=== PATIENT | male | born 1960 | race Caucasian/White ===

== ENCOUNTER 2020-12-30 05:33 | Outpatient (CLI) | payer BC ==
[~2020-12-30] VITALS: Ht 172.7 cm; Wt 77.0 kg
[~2020-12-30 05:33] MED LIST: ASP81TEC PO; FAMO40TA6 PO; PRD20T PO; SULF1TAB38 PO
[2020-12-30] MEDS ORDERED: LISI10TA25 PO (15:25)
== END 2020-12-30 15:58 | disposition home or self-care (01) ==
LOC: PREOP 05:33 → EDSTATUS 10:00 → PREOP 15:58
PROVIDERS: ATTEND Surgery
DX: Z01.818 Encounter for other preprocedural examination (principal)

== ENCOUNTER 2022-12-18 13:21 | Inpatient (IN) | payer BC ==
[~2022-12-18] VITALS: Ht 170 cm; Wt 87.4 kg
[~2022-12-18 13:21] MED LIST changes: +LISI10TA25 PO
[2022-12-18] MEDS ORDERED: RT-ALBUTEROL/IPRATROPIUM 3 ML (DUONEB) VIAL ONE (13:27)
[2022-12-18] MEDS ORDERED: RT-ALBUTEROL/IPRATROPIUM 3 ML (DUONEB) VIAL INH ONE ×2 (13:30→14:30)
[2022-12-18] MEDS ORDERED: methylPREDNISolone 125 MG (Solu-MEDROL) VIAL IVP ONE (13:30)
[2022-12-18] MEDS ORDERED: DOXYCYCLINE 100 MG (VIBRAMYCIN) TABLET PO ONE (13:30)
[2022-12-18] MEDS ORDERED: LACTATED RINGERS 1,000 ML IV STA (13:32)
--- NOTE | 2022-12-18 13:35 | ED Respiratory ---
General Stated Complaint: SOB; WHEEZING Source: patient Exam Limitations: no limitations History of Present Illness Date Seen by Provider: Dec 18, 2022 Time Seen by Provider: 13:23 Initial Comments 62-year-old male with past medical history of hypertension coming in because he is feeling short of breath. Started noticing some wheezing yesterday, worsening today. He has never felt this way before, and denies any history of COPD. He used to smoke, but does not smoke tobacco anymore, does use marijuana. Denies any chest pain, fever, lower extremity swelling or pain, prior history of DVT or PE, has never had surgery, no hormone use, no nausea, vomiting, diarrhea, weakness, numbness, or any other concerns Allergies and Home Medications Allergies Coded Allergies: No Known Drug Allergies (Unverified , 03/14/11) Patient Home Medication List Home Medication List Reviewed: Yes Aspirin (Aspirin Ec 81 Mg) 81 Mg Tabec, 81 MG PO DAILY, (Reported) Entered as Reported by: LETICIA KILGORE on 03/14/11 2216 Lisinopril (Lisinopril) 10 Mg Tablet, 10 MG PO DAILY, (Reported) Entered as Reported by: BRENDA PULIDO on 12/30/20 1525 Review of Systems Review of Systems Constitutional: No fever EENTM: no symptoms reported Respiratory: see HPI Cardiovascular: no symptoms reported Gastrointestinal: no symptoms reported Genitourinary: no symptoms reported Musculoskeletal: no symptoms reported Skin: no symptoms reported Psychiatric/Neurological: No Symptoms Reported Hematologic/Lymphatic: No Symptoms Reported Immunological/Allergic: no symptoms reported Past Ztaxllb-Vawfvl-Jwydhj Hx Patient Social History Use of E-Cig and/or Vaping dev: Yes E-Cig or Vaping type used: Marijuana Seasonal Allergies Seasonal Allergies: No Past Medical History Surgeries: Yes Tonsillectomy Respiratory: No Currently Using CPAP: No Currently Using BIPAP: No Cardiac: Yes Hypertension Neurological: No Genitourinary: No Gastrointestinal: No Musculoskeletal: No Endocrine: No HEENT: No Cancer: No Psychosocial: No Integumentary: No Blood Disorders: No Physical Exam Vital Signs - First Documented 12/18/22 12/18/22 13:30 13:35 Temp 36.9 Pulse 129 Resp 40 B/P (MAP) 185/91 (122) Pulse Ox 95 O2 Delivery Nasal Cannula O2 Flow Rate 2.00 Capillary Refill : Height: '" Weight: lbs. oz. kg; 25.81 BMI Method: General Appearance: WD/WN, severe distress Eyes: Bilateral Eye Normal Inspection HEENT: PERRL/EOMI, normal ENT inspection, pharynx normal Neck: non-tender, full range of motion, supple, normal inspection Respiratory: chest non-tender, respiratory distress, wheezing Cardiovascular: no edema, no murmur, tachycardia Gastrointestinal: normal bowel sounds, non tender, soft; No distended, No guarding Extremities: normal range of motion, non-tender, normal inspection, no pedal edema, no calf tenderness, normal capillary refill Neurologic/Psychiatric: no motor/sensory deficits, alert, normal mood/affect Skin: normal color, warm/dry Focused Exam Lactate Level 12/18/22 13:35: Lactic Acid Level 5.76*H Lactic Acid Level Laboratory Tests Test 12/18/22 13:35 Lactic Acid Level 5.76 MMOL/L (0.50-2.00) *H Progress/Results/Core Measures Suspected Sepsis SIRS Temperature: Pulse: Respiratory Rate: Laboratory Tests 12/18/22 13:35: White Blood Count 16.0H Blood Pressure / Mean: 12/18/22 13:35: Lactic Acid Level 5.76*H Laboratory Tests 12/18/22 13:35: Creatinine 1.31H, INR Comment 1.0, Platelet Count 256, Total Bilirubin 1.3H Results/Orders Lab Results Laboratory Tests Test 12/18/22 13:35 Range/Units White Blood Count 16.0 H 4.3-11.0 10^3/uL Red Blood Count 6.22 H 4.30-5.52 10^6/uL Hemoglobin 17.6 13.3-17.7 g/dL Hematocrit 55 H 40-54 % Mean Corpuscular Volume 88 80-99 fL Mean Corpuscular Hemoglobin 28 25-34 pg Mean Corpuscular Hemoglobin Concent 32 32-36 g/dL Red Cell Distribution Width 14.1 10.0-14.5 % Platelet Count 256 130-400 10^3/uL Mean Platelet Volume 9.9 9.0-12.2 fL Immature Granulocyte % (Auto) 1 % Neutrophils (%) (Auto) 79 H 42-75 % Lymphocytes (%) (Auto) 11 L 12-44 % Monocytes (%) (Auto) 7 0-12 % Eosinophils (%) (Auto) 2 0-10 % Basophils (%) (Auto) 0 0-10 % Neutrophils # (Auto) 12.6 H 1.8-7.8 10^3/uL Lymphocytes # (Auto) 1.8 1.0-4.0 10^3/uL Monocytes # (Auto) 1.2 H 0.0-1.0 10^3/uL Eosinophils # (Auto) 0.3 0.0-0.3 10^3/uL Basophils # (Auto) 0.0 0.0-0.1 10^3/uL Immature Granulocyte # (Auto) 0.1 0.0-0.1 10^3/uL Neutrophils % (Manual) 76 % Lymphocytes % (Manual) 10 % Monocytes % (Manual) 7 % Eosinophils % (Manual) 1 % Myelocytes % 1 % Band Neutrophils 5 % Platelet Estimate NORMAL Blood Morphology Comment NORMAL Prothrombin Time 13.8 12.2-14.7 SEC INR Comment 1.0 0.8-1.4 Activated Partial Thromboplast Time 28 24-35 SEC D-Dimer 2.98 H 0.00-0.49 UG/ML Venous Blood pH 7.20 L 7.31-7.41 Venous Blood Partial Pressure CO2 59 H 40-52 MMHG Venous Blood HCO3 23 22-28 MMOL/L Sodium Level 139 135-145 MMOL/L Potassium Level 3.8 3.6-5.0 MMOL/L Chloride Level 99 98-107 MMOL/L Carbon Dioxide Level 21 21-32 MMOL/L Anion Gap 19 H 5-14 MMOL/L Blood Urea Nitrogen 15 7-18 MG/DL Creatinine 1.31 H 0.60-1.30 MG/DL Estimat Glomerular Filtration Rate 61 BUN/Creatinine Ratio 11 Glucose Level 164 H 70-105 MG/DL Lactic Acid Level 5.76 *H 0.50-2.00 MMOL/L Calcium Level 9.2 8.5-10.1 MG/DL Corrected Calcium 8.5-10.1 MG/DL Total Bilirubin 1.3 H 0.1-1.0 MG/DL Aspartate Amino Transf (AST/SGOT) 25 5-34 U/L Alanine Aminotransferase (ALT/SGPT) 36 0-55 U/L Alkaline Phosphatase 66 40-136 U/L Troponin I < 0.30 <0.30 NG/ML Pro-B-Type Natriuretic Peptide 469.2 H <125.0 PG/ML Total Protein 8.3 H 6.4-8.2 GM/DL Albumin 4.6 H 3.2-4.5 GM/DL My Orders Orders - SHERWIN CADET MD Albuterol/Ipra Inhalation Soln (Duoneb I (12/18/22 13:30) Albuterol/Ipra Inhalation Soln (Duoneb I (12/18/22 13:27) Monitor-Rhythm Ecg Trace Only (12/18/22 13:30) Pulse Oximetry Order (12/18/22 13:30) Cbc And Manual Diff (12/18/22 13:30) Ekg Tracing (12/18/22 13:30) Doxycycline Hyclate Tablet (Vibramycin T (12/18/22 13:30) Comprehensive Metabolic Panel (12/18/22 13:30) Protime With Inr (12/18/22 13:30) Partial Thromboplastin Time (12/18/22 13:30) Probnp Fs (12/18/22 13:30) Troponin I Fs (12/18/22 13:30) Chest 1 View Ap/Pa Only (12/18/22 13:30) Methylprednisolone Sod Succ (Solu-Medrol (12/18/22 13:30) Lactated Ringers (Lr 1000 Ml Iv Solution (12/18/22 13:32) Venous Blood Gas (12/18/22 13:35) Fibrin Degradation Products (12/18/22 13:45) Ceftriaxone 1 Gm Pre-Mix (Rocephin 1 Gm (12/18/22 14:00) Lactic Acid Analyzer (12/18/22 14:01) Blood Culture (12/18/22 14:24) Albuterol/Ipra Inhalation Soln (Duoneb I (12/18/22 14:30) Ct Angio Chest W (12/18/22 14:43) Iohexol Injection (Omnipaque 350 Mg/Ml 1 (12/18/22 14:45) Received Contrast (Hold Metformin- Contr (12/18/22 14:45) Ns (Ivpb) (Sodium Chloride 0.9% Ivpb Bag (12/18/22 14:45) Medications Given in ED Current Medications Medications Dose Ordered Sig/Katie Route Start Time Stop Time Status Last Admin Dose Admin Albuterol/ Ipratropium 3 ml ONCE ONCE INH 12/18/22 13:30 12/18/22 13:31 DC 12/18/22 13:47 3 ML Albuterol/ Ipratropium 3 ml ONCE ONCE INH 12/18/22 14:30 12/18/22 14:31 DC 12/18/22 13:28 3 ML Ceftriaxone Sodium/Dextrose 50 ml @ 100 mls/hr ONCE ONCE IV 12/18/22 14:00 12/18/22 14:29 DC 12/18/22 14:14 100 MLS/HR Doxycycline Hyclate 100 mg ONCE ONCE PO 12/18/22 13:30 12/18/22 13:33 DC 12/18/22 13:47 100 MG Iohexol 100 ml ONCE ONCE IV 12/18/22 14:45 12/18/22 14:49 DC 12/18/22 15:19 80 ML Methylprednisolone Sodium Succinate 125 mg ONCE ONCE IVP 12/18/22 13:30 12/18/22 13:33 DC 12/18/22 13:47 125 MG Sodium Chloride 100 ml ONCE ONCE IV 12/18/22 14:45 12/18/22 14:49 DC 12/18/22 15:19 100 ML Vital Signs/I&O 12/18/22 12/18/22 12/18/22 13:30 13:35 15:32 Temp 36.9 Pulse 129 113 Resp 40 20 B/P (MAP) 185/91 (122) 113/66 Pulse Ox 95 96 99 O2 Delivery Nasal Cannula Nasal Cannula NIV Bilevel O2 Flow Rate 2.00 6.00 30.00 Capillary Refill : Progress Note : Progress Note 62yoM with above history coming in due to increasing SOB. The patient was tachypneic on presentation, in respiratory distress with wheezing. Immediately given a DuoNeb with very mild improvement. Patient speaking in essentially one- word sentences, but barely able to get that out, transitioned over to BiPAP for work of breathing. EKG with no acute ischemic changes on my interpretation, just showing sinus tachycardia. Chest x-ray ordered and interpreted by me showing bilateral pneumonia. An IV was placed and basic labs were obtained incl uding cardiac biomarkers and lactic acid. He was given ceftriaxone as well as doxycycline for his pneumonia. Also given a bolus of IV fluids. White blood cell count elevated, lactic acid elevated, D-dimer elevated, troponin negative. CTA then ordered to assess for blood clot versus infection. I contacted Dr. Pavon who admit the patient to the ICU for further evaluation and management. I then contacted the ICU physician for signout as well. ECG Initial ECG Impression Date: Dec 18, 2022 Initial ECG Impression Time: 13:49 Initial ECG Rate: 124 Initial ECG Rhythm: S.Tach Comment Narrow QRS, normal axis, ST depressions in the lateral leads, no STEMI, no significant T wave abnormality Diagnostic Imaging Diagonstic Imaging: Xray (chest), CT (CTA chest) Comments [facility], [place] NAME: SHERI NUNES [facility] REC#: [id number] PT STATUS: REG ER : 1960 PHYSICIAN: SHERWIN CADET MD ADMIT DATE: 12/18/22/ER FS Draft Date of Exam:12/18/22 CHEST 1 VIEW AP/PA ONLY HISTORY: Respiratory distress TECHNIQUE: Frontal view of the chest COMPARISON: None FINDINGS: There are patchy airspace opacities in the left midlung in the right lung base. There is no pleural effusion or pneumothorax. The cardiac silhouette is normal in size. IMPRESSION: 1. Airspace opacities bilaterally, most pronounced in the right lung base, concerning for infection. Dictated on workstation # [id number] Dict: 12/18/22 1350 Trans: 12/18/22 1352 [facility] [id number] Interpreted by: LISA HAYNES MD Electronically signed by: [facility], [place] NAME: SHERI NUNES [facility] REC#: [id number] PT STATUS: REG ER : 1960 PHYSICIAN: SHERWIN CADET MD ADMIT DATE: 12/18/22/ER FS Signed Date of Exam:12/18/22 CT ANGIO CHEST W PROCEDURE: CT angiography of the chest with contrast. TECHNIQUE: Multiple contiguous axial images were obtained through the chest after uneventful bolus administration of intravenous contrast. 3D reconstructed CTA MIP acquisitions were also performed. Auto Exposure Controls were utilized during the CT exam to meet ALARA standards for radiation dose reduction. INDICATION: Wheezing and elevated D-dimer with shortness of breath. COMPARISON: No prior studies are available for comparison. FINDINGS: There is suboptimal opacification of the pulmonary arterial system. No definite central emboli are detected, however evaluation of the segmental and subsegmental branches is limited. The thoracic aorta is normal in caliber. There is no dissection. There is no pericardial fluid. There is trace pleural fluid in the lung bases bilaterally. No axillary lymphadenopathy is seen. There are mildly prominent lymph nodes throughout the mediastinum. No hilar lymphadenopathy is detected. There are patchy airspace infiltrates in bilateral upper lobes as well as areas of parenchymal consolidation in bilateral upper lobes as well as the right lower lobe and to a lesser degree in the lingula. Upper abdomen is grossly unremarkable. IMPRESSION: 1. Suboptimal opacification of the pulmonary arterial system. 2. No definite central emboli are detected. 3. Trace bilateral effusions with bilateral pulmonary infiltrates, suggestive of pneumonia. There are some prominent lymph nodes in the mediastinum which may be reactive. Dictated by: Dictated on workstation # [id number] Dict: 12/18/22 1530 Trans: 12/18/22 1550 [id number] Interpreted by: COLLEEN COTTRELL MD Electronically signed by: COLLEEN COTTRELL MD 12/18/22 1550 Departure Impression Primary Impression: Pneumonia Qualified Codes: J18.9 - Pneumonia, unspecified organism Additional Impressions: Respiratory failure Qualified Codes: J96.02 - Acute respiratory failure with hypercapnia Severe sepsis Disposition: 30 STILL A PATIENT Condition: Stable Admissions Decision to Admit Reason: Admit from ER (General) Decision to Admit/Date: Dec 18, 2022 Time/Decision to Admit Time: 14:40 Transfer Transfer Facility: [facility] Method of Transfer: EMS Departure-Patient Inst. Referrals: NO,LOCAL PHYSICIAN (PCP/Family) Primary Care Physician SHERWIN CADET MD Dec 18, 2022 13:35
[2022-12-18 13:45] LABS: BASOPHILS % (AUTO) 0 % (0-10); EOSINOPHILS # (AUTO) 0.3 10^3/uL (0.0-0.3); EOSINOPHILS % (AUTO) 2 % (0-10); HEMATOCRIT 55 % (40-54); HEMOGLOBIN 17.6 g/dL (13.3-17.7); LYMPHOCYTES # (AUTO) 1.8 10^3/uL (1.0-4.0); LYMPHOCYTES % (AUTO) 11 % (12-44); MEAN CORPUSCULAR HEMOGLOBIN 28 pg (25-34); MEAN CORPUSCULAR HGB CONC 32 g/dL (32-36); MEAN CORPUSCULAR VOLUME 88 fL (80-99); MEAN PLATELET VOLUME 9.9 fL (9.0-12.2); MONOCYTES # (AUTO) 1.2 10^3/uL (0.0-1.0); MONOCYTES % (AUTO) 7 % (0-12); NEUTROPHILS # (AUTO) 12.6 10^3/uL (1.8-7.8); NEUTROPHILS % (AUTO) 79 % (42-75); PLATELET COUNT 256 10^3/uL (130-400)
--- NOTE | 2022-12-18 13:52 | Diagnostic Imaging Report ---
HISTORY: Respiratory distress TECHNIQUE: Frontal view of the chest COMPARISON: None FINDINGS: There are patchy airspace opacities in the left midlung in the right lung base. There is no pleural effusion or pneumothorax. The cardiac silhouette is normal in size. IMPRESSION: 1. Airspace opacities bilaterally, most pronounced in the right lung base, concerning for infection. Dictated by: Dictated on workstation # [id number]
[2022-12-18] MEDS ORDERED: cefTRIAXone 1 GM PRE-MIX 50 ML IV ONE (14:00)
[2022-12-18 14:12] LABS: BAND NEUTROPHILS 5 %; EOSINOPHILS % (MANUAL) 1 %; LYMPHOCYTES % (MANUAL) 10 %; MONOCYTES % (MANUAL) 7 %; MYELOCYTES % 1 %; NEUTROPHILS % (MANUAL) 76 %
[2022-12-18 14:13] LABS: PLATELET ESTIMATE NORMAL; RBC MORPH NORMAL
[2022-12-18 14:20] LABS: CHLORIDE 99 MMOL/L (98-107); POTASSIUM 3.8 MMOL/L (3.6-5.0); SODIUM 139 MMOL/L (135-145)
[2022-12-18 14:21] LABS: ALANINE AMINOTRANSFERASE 36 U/L (0-55); ALBUMIN 4.6 GM/DL (3.2-4.5); ALKALINE PHOSPHATASE 66 U/L (40-136); BILIRUBIN,TOTAL 1.3 MG/DL (0.1-1.0); BUN/CREATININE RATIO 11; CALCIUM 9.2 MG/DL (8.5-10.1); CARBON DIOXIDE 21 MMOL/L (21-32); CREATININE SERUM 1.31 MG/DL (0.60-1.30); GFR ESTIMATED 61; GLUCOSE 164 MG/DL (70-105); TOTAL PROTEIN 8.3 GM/DL (6.4-8.2)
[2022-12-18 14:39] LABS: PROTHROMBIN TIME PATIENT 13.8 SEC (12.2-14.7)
[2022-12-18] MEDS ORDERED: NS 100 ML (IVPB) BAG IV ONE (14:45)
[2022-12-18] MEDS ORDERED: IOHEXOL 350 MG/ML 100 ML (OMNIPAQUE 350) VIAL IV ONE (14:45)
[2022-12-18] MEDS ORDERED: HOLD METFORMIN - RECEIVED CONTRAST 20 ML VIAL IV SCH (14:45)
--- NOTE | 2022-12-18 15:41 | Diagnostic Imaging Report ---
PROCEDURE: CT angiography of the chest with contrast. TECHNIQUE: Multiple contiguous axial images were obtained through the chest after uneventful bolus administration of intravenous contrast. 3D reconstructed CTA MIP acquisitions were also performed. Auto Exposure Controls were utilized during the CT exam to meet ALARA standards for radiation dose reduction. INDICATION: Wheezing and elevated D-dimer with shortness of breath. COMPARISON: No prior studies are available for comparison. FINDINGS: There is suboptimal opacification of the pulmonary arterial system. No definite central emboli are detected, however evaluation of the segmental and subsegmental branches is limited. The thoracic aorta is normal in caliber. There is no dissection. There is no pericardial fluid. There is trace pleural fluid in the lung bases bilaterally. No axillary lymphadenopathy is seen. There are mildly prominent lymph nodes throughout the mediastinum. No hilar lymphadenopathy is detected. There are patchy airspace infiltrates in bilateral upper lobes as well as areas of parenchymal consolidation in bilateral upper lobes as well as the right lower lobe and to a lesser degree in the lingula. Upper abdomen is grossly unremarkable. IMPRESSION: 1. Suboptimal opacification of the pulmonary arterial system. 2. No definite central emboli are detected. 3. Trace bilateral effusions with bilateral pulmonary infiltrates, suggestive of pneumonia. There are some prominent lymph nodes in the mediastinum which may be reactive. Dictated by: Dictated on workstation # [id number]
[2022-12-18 16:48] VITALS: BP 134/82
[2022-12-18 16:55] VITALS: BP 113/66
[2022-12-18] MEDS ORDERED: NOREPINEPHRINE 8 MG/250 ML 250 ML IV SCH (17:00)
[2022-12-18] MEDS ORDERED: ONDANSETRON 4 MG/2 ML (SDV) Z0FRAN IV PRN (17:00)
[2022-12-18] MEDS ORDERED: EPINEPHrine 1 MG INJECTION 4 MG in NS (IVPB) 248 ML IV SCH (17:00)
[2022-12-18] MEDS ORDERED: ACETAMINOPHEN 500 MG TAB (TYLENOL) PO PRN (17:00)
[2022-12-18 17:03] VITALS: BP 113/66
[2022-12-18] MEDS ORDERED: RT-ALBUTEROL SULF 2.5 MG/3 ML PRE-MIX VIAL INH PRN (17:15)
--- NOTE | 2022-12-18 17:25 | Tele-ICU Consult ---
History of Present Illness History of Present Illness Date Seen by Provider: Dec 18, 2022 Time Seen by Provider: 17:17 History of Present Illness eICU critical care consult 62 yo M came to ED with cc of SOB, CXR showed bilateral opacities, carrie in RLL base, CTA was suboptimal but did now show obvious pul emb.d dimer 2.98 Pt refused COVID or flu according to ED MD, Started on IV Rocephin and doxycycline Initially pt cyanotic and in resp distress with SpO2 in 80's, placed on BiPAP with good improvement 09/08, FIO2 30% WBC 16k, LA 5.76, VBG 7.20/59, proBNP up at 469m Cr 1.3, LFT's ok Has not received either Covid or flu vaccine but now agrees to have nose swabbed. PMH HTN on no meds Allergies and Home Medications Allergies Coded Allergies: No Known Drug Allergies (Unverified , 03/14/11) Home Medications Aspirin 81 Mg Tabec, 81 MG PO DAILY, (Reported) Lisinopril 10 Mg Tablet, 10 MG PO DAILY, (Reported) Past Medical/Social/Family Hx Patient Social History Tobacco Use?: No Use of E-Cig and/or Vaping dev: Yes E-Cig or Vaping type used: Marijuana Substance use?: Yes Substance type: Marijuana Alcohol Use?: No Pt stated abuse/neglect: No Immunizations Up To Date Influenza Vaccine Up-to-Date: No; Not Current First/Initial COVID19 Vaccinat: NO VACC Current Status Advance Directives: No Communicates: Verbally Primary Language: Cypriot Preferred Spoken Language: Cypriot Is interpretation needed?: No Sensory deficits: Vision impairment Implanted or Applied Medical D: None Review of Systems Constitutional: see HPI EENTM: see HPI Respiratory: see HPI Cardiovascular: see HPI Gastrointestinal: see HPI Genitourinary: see HPI Musculoskeletal: see HPI Skin: see HPI Psychiatric/Neurological: See HPI Focused Exam Lactate Level 12/18/22 13:35: Lactic Acid Level 5.76*H 12/18/22 17:03: Height, Weight, BMI Height: '" Weight: lbs. oz. kg; 25.00 BMI Method: Lactic Acid Level Laboratory Tests Test 12/18/22 13:35 12/18/22 17:03 Lactic Acid Level 5.76 MMOL/L (0.50-2.00) *H Exam Exam Patient acknowledged, consented, and participated in this virtual visit which was conducted using real time audio/video Vital Signs Date Time Temp Pulse Resp B/P (MAP) Pulse Ox O2 Delivery O2 Flow Rate FiO2 12/18/22 16:55 36.9 110 96 2 12/18/22 16:55 Nasal Cannula 3.00 12/18/22 15:32 113 20 113/66 99 NIV Bilevel 30.00 12/18/22 13:35 36.9 129 40 185/91 (122) 96 Nasal Cannula 6.00 12/18/22 13:30 95 Nasal Cannula 2.00 Height & Weight Height: '" Weight: lbs. oz. kg; 25.00 BMI Method: General Appearance: No Apparent Distress Respiratory: Lungs Clear Cardiovascular: Regular Rate, Rhythm, Tachycardia Capillary Refill: Less Than 3 Seconds Gastrointestinal: normal bowel sounds, non tender, soft Extremity: No Pedal Edema (`), Pedal Edema Results Lab Laboratory Tests 12/18/22 13:35 Assessment/Plan Assessment/Plan Bilateral PNA R > L, Would keep in resp isolaiton until Covid and flu serology back, continue on present abx Hb 17.6 may reflect dehydration but also may be due to a reactive polycythemia from exertional hypoxia or NHAN Critical Care: Critically Ill Patient Time spent with patient (mins): 30 GEOVANNA MA MD Dec 18, 2022 17:25
[2022-12-18] MEDS: VASOPRESSIN INJECTION 20 UNIT in NS (IVPB) 100 ML IV SCH (18:14)
[2022-12-18] MEDS: RT-ALBUTEROL/IPRATROPIUM 3 ML (DUONEB) VIAL INH SCH (21:06)
[2022-12-18] MEDS: DOXYCYCLINE INJECTION 100 MG in NS (IVPB) 100 ML IV SCH (21:15)
[2022-12-19] MEDS: VASOPRESSIN INJECTION 20 UNIT in NS (IVPB) 100 ML IV SCH (04:08)
[2022-12-19 07:19] LABS: BASOPHILS % (AUTO) 0 % (0-10); EOSINOPHILS # (AUTO) 0.1 10^3/uL (0.0-0.3); EOSINOPHILS % (AUTO) 0 % (0-10); HEMATOCRIT 47 % (40-54); HEMOGLOBIN 15.6 g/dL (13.3-17.7); LYMPHOCYTES # (AUTO) 0.9 10^3/uL (1.0-4.0); LYMPHOCYTES % (AUTO) 5 % (12-44); MEAN CORPUSCULAR HEMOGLOBIN 29 pg (25-34); MEAN CORPUSCULAR HGB CONC 33 g/dL (32-36); MEAN CORPUSCULAR VOLUME 87 fL (80-99); MONOCYTES # (AUTO) 0.7 10^3/uL (0.0-1.0); MONOCYTES % (AUTO) 4 % (0-12); NEUTROPHILS # (AUTO) 16.7 10^3/uL (1.8-7.8); NEUTROPHILS % (AUTO) 90 % (42-75); PLATELET COUNT 219 10^3/uL (130-400); WHITE BLOOD COUNT 18.5 10^3/uL (4.3-11.0)
[2022-12-19 07:29] LABS: POTASSIUM 3.8 MMOL/L (3.6-5.0)
[2022-12-19 07:30] LABS: CALCIUM 9.2 MG/DL (8.5-10.1)
[2022-12-19 07:34] LABS: CREATININE SERUM 1.09 MG/DL (0.60-1.30); PHOSPHORUS 1.7 MG/DL (2.3-4.7)
[2022-12-19 07:37] LABS: MAGNESIUM 2.1 MG/DL (1.6-2.4)
[2022-12-19 08:03] LABS: BAND NEUTROPHILS 2 %; LYMPHOCYTES % (MANUAL) 3 %; MONOCYTES % (MANUAL) 6 %; NEUTROPHILS % (MANUAL) 89 %; PLATELET ESTIMATE ADEQUATE; RBC MORPH NORMAL
[2022-12-19 08:04] LABS: TOXIC GRANULATION/VACUOLAZATIO 1+
[2022-12-19] MEDS: DOXYCYCLINE INJECTION 100 MG in NS (IVPB) 100 ML IV SCH ×2 (08:14→19:37)
--- NOTE | 2022-12-19 08:16 | Tele-ICU Progress Note ---
Progress Note video rounds completed 62 y/o male with COPD and bilateral PNA Influenza and Covid testing negative. On IV ceftriaxone Overall doing well PE" O2 sat 98% P: 71 NSR BP: 134/88 IMP: bilateral PNA on IV antibiotics Have added lovenox for DVT px PLAN: CPM Time spent with patient and reviewing labs, new orders: 15 minutes Focused Exam Lactate Level 12/18/22 17:03: Lactic Acid Level 2.74*H 12/18/22 19:05: Lactic Acid Level 2.11*H 12/18/22 21:05: Lactic Acid Level 1.63 Height, Weight, BMI Height: '" Weight: lbs. oz. kg; 25.88 BMI Method: Labs Laboratory Tests 12/18/22 13:35 12/19/22 07:10 Results Results/Procedures Lab Laboratory Tests 12/18/22 13:35 12/19/22 07:10 Results Results/Procedures Labs Laboratory Tests 12/18/22 13:35 12/19/22 07:10 Patient resulted labs reviewed. Results Labs Labs Laboratory Tests 12/18/22 13:35: White Blood Count 16.0H, Red Blood Count 6.22H, Hemoglobin 17.6, Hematocrit 55H, Mean Corpuscular Volume 88, Mean Corpuscular Hemoglobin 28, Mean Corpuscular Hemoglobin Concent 32, Red Cell Distribution Width 14.1, Platelet Count 256, Mean Platelet Volume 9.9, Immature Granulocyte % (Auto) 1, Neutrophils (%) (Auto) 79H, Lymphocytes (%) (Auto) 11L, Monocytes (%) (Auto) 7, Eosinophils (%) (Auto) 2, Basophils (%) (Auto) 0, Neutrophils # (Auto) 12.6H, Lymphocytes # (Auto) 1.8, Monocytes # (Auto) 1.2H, Eosinophils # (Auto) 0.3, Basophils # (Auto) 0.0, Immature Granulocyte # (Auto) 0.1, Neutrophils % (Manual) 76, Lymphocytes % (Manual) 10, Monocytes % (Manual) 7, Eosinophils % (Manual) 1, Myelocytes % 1, Band Neutrophils 5, Platelet Estimate NORMAL, Blood Morphology Comment NORMAL, Prothrombin Time 13.8, INR Comment 1.0, Activated Partial Thromboplast Time 28, D-Dimer 2.98H, Venous Blood pH 7.20L, Venous Blood Partial Pressure CO2 59H, Venous Blood HCO3 23, Sodium Level 139, Potassium Level 3.8, Chloride Level 99, Carbon Dioxide Level 21, Anion Gap 19H, Blood Urea Nitrogen 15, Creatinine 1.31H, Estimat Glomerular Filtration Rate 61, BUN/Creatinine Ratio 11, Glucose Level 164H, Lactic Acid Level 5.76*H, Calcium Level 9.2, Corrected Calcium , Total Bilirubin 1.3H, Aspartate Amino Transf (AST/SGOT) 25, Alanine Aminotransferase (ALT/SGPT) 36, Alkaline Phosphatase 66, Troponin I < 0.30, Pro-B-Type Natriuretic Peptide 469.2H, Total Protein 8.3H, Albumin 4.6H 12/18/22 17:03: Lactic Acid Level 2.74*H 12/18/22 18:04: Influenza Type A (RT-PCR) Not Detected, Influenza Type B (RT-PCR) Not Detected, SARS-CoV-2 RNA (RT-PCR) Not Detected 12/18/22 19:05: Lactic Acid Level 2.11*H 12/18/22 21:05: Lactic Acid Level 1.63 12/19/22 07:10: White Blood Count 18.5H, Red Blood Count 5.47, Hemoglobin 15.6, Hematocrit 47, Mean Corpuscular Volume 87, Mean Corpuscular Hemoglobin 29, Mean Corpuscular Hemoglobin Concent 33, Red Cell Distribution Width 13.7, Platelet Count 219, Mean Platelet Volume 10.0, Immature Granulocyte % (Auto) 1, Neutrophils (%) (Auto) 90H, Lymphocytes (%) (Auto) 5L, Monocytes (%) (Auto) 4, Eosinophils (%) (Auto) 0, Basophils (%) (Auto) 0, Neutrophils # (Auto) 16.7H, Lymphocytes # (Auto) 0.9L, Monocytes # (Auto) 0.7, Eosinophils # (Auto) 0.1, Basophils # (Auto) 0.0, Immature Granulocyte # (Auto) 0.1, Neutrophils % (Manual) 89, Lymphocytes % (Manual) 3, Monocytes % (Manual) 6, Band Neutrophils 2, Toxic Granulation 1+, Platelet Estimate ADEQUATE, Blood Morphology Comment NORMAL, Sodium Level 141, Potassium Level 3.8, Chloride Level 110#H, Carbon Dioxide Level 19L, Anion Gap 12, Blood Urea Nitrogen 17, Creatinine 1.09, Estimat Glomerular Filtration Rate 76, BUN/Creatinine Ratio 16, Glucose Level 154H, Calcium Level 9.2, Phosphorus Level 1.7L, Magnesium Level 2.1 GEOVANNA RAMSEY MD Dec 19, 2022 08:16
--- NOTE | 2022-12-19 09:12 | History & Physical-Hospitalist ---
History of Present Illness HPI/Chief Complaint 62-year-old male with past medical history of hypertension coming in because he is feeling short of breath. Started noticing some wheezing yesterday, worsening today. He has never felt this way before, and denies any history of COPD. He used to smoke, but does not smoke tobacco anymore, does use marijuana. Denies a ny chest pain, fever, lower extremity swelling or pain, prior history of DVT or PE, has never had surgery, no hormone use, no nausea, vomiting, diarrhea, weakness, numbness, or any other concerns Upon my arrival the patient was feeling much better on 2 L with O2 saturations in the mid 90s. He denied any sensation of chills or fever but he was definitely wheezing with his shortness of breath which has been progressively getting worse over the past 72 hours. He reported only a mild cough that was nonproductive. He was not aware that he been around anybody who had been sick. While he reports he has had problems with alcohol in the past especially after the loss of his 2-1/2 years ago he had given alcohol up over the past 6 months has been per his report self-medicating with edible Indica which reduces his and anxiety with no other illicit type drug use reported. Date Seen 12/19/22 Time Seen by a Provider: 07:45 Attending Physician No,Local Physician PCP Admitting Physician: Katerin Monroe MD Attending Physician: Katerin Monroe MD Referring Physician Date of Admission Dec 18, 2022 at 16:05 Home Medications & Allergies Home Medications Reviewed patient Home Medication Reconciliation performed by pharmacy medication reconciliations instrument room technician and/or nursing. Patients Allergies have been reviewed. Allergies Allergies Coded Allergies No Known Drug Allergies (Unverified03/14/11) Past Sdskoqt-Uiquvb-Hmfmsf Hx Patient Social History Tobacco Use?: Yes Tobacco type used: Cigars Smoking Status: Former Smoker Use of E-Cig and/or Vaping dev: No E-Cig or Vaping type used: Marijuana Substance use?: Yes Substance type: Marijuana Alcohol Use?: No Additional Alcohol Comments: FORMER DRINKER QUIT 6 MONTHS AGO Pt feels they are or have been: No Immunizations Up To Date First/Initial COVID19 Vaccinat: NO VACC Tetanus Booster (TDap): More Than 5 Years Hepatitis A: Yes Hepatitis B: Yes Seasonal Allergies Seasonal Allergies: No Current Status Advance Directives: No Communicates: Verbally Primary Language: Salvadorean Preferred Spoken Language: Salvadorean Is interpretation needed?: No Sensory deficits: Vision impairment Implanted or Applied Medical D: None Past Medical History Surgeries: Tonsillectomy Currently Using CPAP: No Currently Using BIPAP: No Hypertension Blood Disorders: No Review of Systems Constitutional: see HPI Physical Exam Physical Exam Vital Signs Vital Signs - First Documented 12/18/22 12/18/22 12/18/22 13:30 13:35 16:55 Temp 36.9 Pulse 129 Resp 40 B/P (MAP) 185/91 (122) Pulse Ox 95 O2 Delivery Nasal Cannula O2 Flow Rate 2.00 FiO2 2 Capillary Refill : Less Than 3 Seconds Height, Weight, BMI Height: '" Weight: lbs. oz. kg; 25.88 BMI Method: General Appearance: No Apparent Distress HEENT: PERRL/EOMI, TMs Normal, Normal ENT Inspection, Pharynx Normal, Moist Mucous Membranes Neck: Full Range of Motion, Normal Inspection, Non Tender Respiratory: Chest Non Tender, Lungs Clear, Normal Breath Sounds, No Accessory Muscle Use, No Respiratory Distress Cardiovascular: Regular Rate, Rhythm, No Edema, No Gallop, No JVD, No Murmur, Normal Peripheral Pulses Gastrointestinal: Normal Bowel Sounds, No Organomegaly, No Pulsatile Mass, Non Tender, Soft Extremity: Normal Capillary Refill, Normal Inspection, Normal Range of Motion, Non Tender, No Calf Tenderness, No Pedal Edema Results Results/Procedures Labs Laboratory Tests 12/18/22 13:35 12/19/22 07:10 Patient resulted labs reviewed. Assessment/Plan Admission Diagnosis 1. Atypical pneumonia with acute respiratory failure patient significantly improved today we will monitor today but transferred to the floor. CTA admittedly suboptimal did not reveal evidence for pulmonary embolism but did have some bibasilar infiltrate. Patient has no past cigarette smoking history does have history of some cigar smoking so there is a small possibility for underlying COPD will be advising pulmonary function testing as an outpatient. 2. 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 Admission Status: Inpatient Order (span 2 midnights) Reason for Inpatient Admission: See admission diagnosis KATERIN MONROE MD Dec 19, 2022 09:12
[2022-12-19] MEDS: cefTRIAXone 1 GM PRE-MIX 50 ML IV SCH (09:14)
[2022-12-19] MEDS: ENOXAPARIN 40 MG/0.4 ML (LOVENOX) SYR SC SCH (09:15)
[2022-12-19] MEDS: RT-ALBUTEROL/IPRATROPIUM 3 ML (DUONEB) VIAL INH SCH ×2 (10:30→21:59)
[2022-12-19 11:48] VITALS: BP 153/75
[2022-12-19 16:10] VITALS: BP 125/69
[2022-12-19 19:24] VITALS: BP 134/75
[2022-12-19 23:15] VITALS: BP 123/76
[2022-12-20 03:29] VITALS: BP 129/77
[2022-12-20 08:07] VITALS: BP 125/72
[2022-12-20] MEDS: cefTRIAXone 1 GM PRE-MIX 50 ML IV SCH (08:32)
[2022-12-20] MEDS: DOXYCYCLINE INJECTION 100 MG in NS (IVPB) 100 ML IV SCH ×2 (08:32→20:26)
[2022-12-20] MEDS: ENOXAPARIN 40 MG/0.4 ML (LOVENOX) SYR SC SCH (08:33)
--- NOTE | 2022-12-20 10:01 | Discharge Summary ---
Diagnosis/Chief Complaint Date of Admission Dec 18, 2022 at 16:05 Date of Discharge Discharge Date: Dec 20, 2022 Admission Diagnosis 1. Atypical pneumonia with acute respiratory failure patient significantly improved today we will monitor today but transferred to the floor. CTA admit carlyle garduno did not reveal evidence for pulmonary embolism but did have some bibasilar infiltrate. Patient has no past cigarette smoking history does have history of some cigar smoking so there is a small possibility for underlying COPD will be advising pulmonary function testing as an outpatient. 2. 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 Primary Care No,Local Physician Discharge Summary Discharge Physical Exam Allergies: Coded Allergies: No Known Drug Allergies (Unverified , 03/14/11) Vitals & I&Os Vital Signs Date Time Temp Pulse Resp B/P (MAP) Pulse Ox O2 Delivery O2 Flow Rate FiO2 12/20/22 11:44 36.8 81 20 150/80 (103) 95 Room Air 12/20/22 03:29 0.00 0.00 12/19/22 04:00 30 General Appearance: No Apparent Distress Respiratory: Chest Non Tender, Lungs Clear, Normal Breath Sounds, No Accessory Muscle Use, No Respiratory Distress Cardiovascular: Regular Rate, Rhythm, No Edema, No Gallop, No JVD, No Murmur, Normal Peripheral Pulses Gastrointestinal: Normal Bowel Sounds, No Organomegaly, No Pulsatile Mass, Non Tender, Soft Hospital Course Was the Problem List Reviewed?: Yes 62-year-old male with past medical history of hypertension coming in because he is feeling short of breath. Started noticing some wheezing yesterday, worsening today. He has never felt this way before, and denies any history of COPD. He used to smoke, but does not smoke tobacco anymore, does use marijuana In edible form only. Denies any chest pain, fever, lower extremity swelling or pain, prior history of DVT or PE, has never had surgery, no hormone use, no nausea, vomiting, diarrhea, weakness, numbness, or any other concerns Upon my arrival the patient was feeling much better on 2 L with O2 saturations in the mid 90s. He denied any sensation of chills or fever but he was definitely wheezing with his shortness of breath which has been progressively getting worse over the past 72 hours. He reported only a mild cough that was nonproductive. He was not aware that he been around anybody who had been sick. While he reports he has had problems with alcohol in the past especially after the loss of his 2-1/2 years ago he had given alcohol up over the past 6 months has been per his report self-medicating with edible Indica which reduces his and anxiety with no other illicit type drug use reported. Hospital course. Patient had rather quick resolution of shortness of breath and we were able to taper him off of oxygen. He had no evidence for wheezing had normal breath sounds. I did obtain a BNP level that was normal in the 50s ruling out heart failure component. He was able to ambulate maintain his oxygen saturation around 90% with no symptoms on the morning of his discharge. He had no cough no sputum production. CTA in the emergency room revealed some bilateral patchy infiltrates without evidence for pulmonary embolism. Suspect underlying viral infection with reactive airways. Cannot rule out underlying COPD and did recommend the patient follow-up with his doctor who had not seen in many years to consider pulmonary function studies. He was told to he was developing shortness of breath at rest he should return to the emergency room. Labs (last 24 hrs) Laboratory Tests 12/20/22 11:23: B-Type Natriuretic Peptide 55.2 Microbiology 12/18/22 Blood Culture - Preliminary, Resulted No growth Patient resulted labs reviewed. Pending Labs Laboratory Tests 12/20/22 11:23: B-Type Natriuretic Peptide 55.2 Discussion & Recommendations Discharge Planning: >30 minutes discharge planning Discharge Home Medications: Active Scripts Active Reported Lisinopril 10 Mg Tablet 10 Mg PO DAILY Aspirin Ec 81 Mg (Aspirin) 81 Mg Tabec 81 Mg PO DAILY Instructions to patient/family Please see electronic discharge instructions given to patient. KATERIN MONROE MD Dec 20, 2022 10:01
[2022-12-20] MEDS: RT-ALBUTEROL/IPRATROPIUM 3 ML (DUONEB) VIAL INH SCH ×2 (10:26→20:25)
[2022-12-20 11:44] VITALS: BP 150/80
[2022-12-20 15:29] VITALS: BP 139/92
[2022-12-20 19:57] VITALS: BP 157/86
[2022-12-21 00:12] VITALS: BP 147/78
[2022-12-21 04:02] VITALS: BP 139/88
--- NOTE | 2022-12-21 05:08 | Discharge Summary ---
Discharge Summary Hospital Course Was the Problem List Reviewed?: Yes Problems/Dx: (1) Severe sepsis Status: Acute (2) Pneumonia Status: Acute Qualifiers: Qualified Codes: J18.9 - Pneumonia, unspecified organism Hospital Course Date of Admission: Dec 18, 2022 at 16:05 Admission Diagnosis : Family Physician/Provider: No,Local Physician Date of Discharge: 12/21/22 Discharge Diagnosis: [ ] Hospital Course: 62-year-old male with past medical history of hypertension coming in because he is feeling short of breath. Started noticing some wheezing yesterday, worsening today. He has never felt this way before, and denies any history of COPD. He used to smoke, but does not smoke tobacco anymore, does use marijuana In edible form only. Denies any chest pain, fever, lower extremity swelling or pain, prior history of DVT or PE, has never had surgery, no hormone use, no nausea, vomiting, diarrhea, weakness, numbness, or any other concerns Upon my arrival the patient was feeling much better on 2 L with O2 saturations in the mid 90s. He denied any sensation of chills or fever but he was definitely wheezing with his shortness of breath which has been progressively getting worse over the past 72 hours. He reported only a mild cough that was nonproductive. He was not aware that he been around anybody who had been sick. While he reports he has had problems with alcohol in the past especially after the loss of his 2-1/2 years ago he had given alcohol up over the past 6 months has been per his report self-medicating with edible Indica which reduces his and anxiety with no other illicit type drug use reported. Hospital course. Patient had rather quick resolution of shortness of breath and we were able to taper him off of oxygen. He had no evidence for wheezing had normal breath sounds. I did obtain a BNP level that was normal in the 50s ruling out heart failure component. He was able to ambulate maintain his oxygen saturation around 90% with no symptoms on the morning of his discharge. He had no cough no sputum production. CTA in the emergency room revealed some bilateral patchy infiltrates without evidence for pulmonary embolism. Suspect underlying viral infection with reactive airways. Cannot rule out underlying COPD and did recommend the patient follow-up with his doctor who had not seen in many years to consider pulmonary function studies. He was told to he was developing shortness of breath at rest he should return to the emergency room. Labs and Pending Lab Test: Laboratory Tests 12/20/22 11:23: B-Type Natriuretic Peptide 55.2 Microbiology 12/18/22 Blood Culture - Preliminary, Resulted No growth Home Meds Active Reported Lisinopril 10 Mg Tablet 10 Mg PO DAILY Aspirin Ec 81 Mg (Aspirin) 81 Mg Tabec 81 Mg PO DAILY Assessment/Pt Instructions pcp 1 week Discharge Planning: <30 minutes discharge planning Discharge Instructions Discharge Diet: No Restrictions Discharge Physical Examination Vital Signs Vital Signs Date Time Temp Pulse Resp B/P (MAP) Pulse Ox O2 Delivery O2 Flow Rate FiO2 12/21/22 04:02 36.4 81 18 139/88 (105) 93 Room Air 12/20/22 03:29 0.00 0.00 12/19/22 04:00 30 General Appearance: No Apparent Distress, WD/WN, Chronically ill Allergies: Coded Allergies: No Known Drug Allergies (Unverified , 03/14/11) Discharge Summary Date of Admission Dec 18, 2022 at 16:05 Date of Discharge Discharge Date: Dec 20, 2022 Admission Diagnosis 1. Atypical pneumonia with acute respiratory failure patient significantly improved today we will monitor today but transferred to the floor. CTA admittedly suboptimal did not reveal evidence for pulmonary embolism but did have some bibasilar infiltrate. Patient has no past cigarette smoking history does have history of some cigar smoking so there is a small possibility for underlying COPD will be advising pulmonary function testing as an outpatient. 2. 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 BRODIE MIR DO Dec 21, 2022 05:08
[2022-12-21] MEDS ORDERED: DOXY100T2 PO (05:11)
[2022-12-21] MEDS ORDERED: CEFD300C3 PO (05:11)
[2022-12-21] MEDS: RT-ALBUTEROL/IPRATROPIUM 3 ML (DUONEB) VIAL INH SCH (07:49)
[2022-12-21] MEDS: ENOXAPARIN 40 MG/0.4 ML (LOVENOX) SYR SC SCH (08:15)
[2022-12-21 08:31] VITALS: BP 152/92
[2022-12-21] MEDS: DOXYCYCLINE INJECTION 100 MG in NS (IVPB) 100 ML IV SCH (09:00)
[2022-12-21] MEDS: cefTRIAXone 1 GM PRE-MIX 50 ML IV SCH (09:00)
== END 2022-12-21 11:15 | disposition home or self-care (01) | DRG 871 ==
LOC: EDUNIT# 13:21 → ER FS 13:23 → ICU 16:05 → 4TH 12-19 11:20
PROVIDERS: ADMIT Internal Medicine; ATTEND Internal Medicine
PROC: 5A09357 Assistance with Respiratory Ventilation, Less than 24 Consecutive Hours, Continuous Positive Airway Pressure (ICD-10-PCS; principal; 2022-12-18)
DX: A41.9 Sepsis, unspecified organism (principal); J18.9 Pneumonia, unspecified organism; J96.02 Acute respiratory failure with hypercapnia; J44.0 Chronic obstructive pulmonary disease with (acute) lower respiratory infection; R65.20 Severe sepsis without septic shock; I10 Essential (primary) hypertension; Z79.82 Long term (current) use of aspirin; Z79.899 Other long term (current) drug therapy; F12.90 Cannabis use, unspecified, uncomplicated; E86.0 Dehydration; Z20.822 Contact with and (suspected) exposure to COVID-19; Z87.891 Personal history of nicotine dependence; F32.89 Other specified depressive episodes
CPT/HCPCS: 36415; 71045; 71275; 80048; 80053; 82805; 83605; 83735; 83880; 84100; 84484; 85007; 85027; 85379; 85610; 85730; 87040; 87636; 93005; 93041; 94640; 94660; 94761; Q9967

== ENCOUNTER 2023-04-11 05:51 | Emergency (ER) | payer SELFPAY ==
[~2023-04-11 05:51] MED LIST changes: +CEFD300C3 PO; +DOXY100T2 PO
--- NOTE | 2023-04-11 07:13 | ED Psychosocial ---
General Chief Complaint: Psych/Social Disorder Stated Complaint: DEPRESSION Source: patient Exam Limitations: no limitations History of Present Illness Date Seen by Provider: Apr 11, 2023 Time Seen by Provider: 06:53 Initial Comments Should since his . He has been using alcohol to try to overcome this and knows that that is not helping. He states that he has to drink more more to get to a spot that he is okay dealing with the loss. Has not drank for the last 3 days and sounds like he drinks intermittently but heavy when he does. Denies suicidal thoughts or homicidal thoughts. He is trying to get access to care for mental health. He has gone to the ER [facility], as well as has called the [place] and called [facility]. He does have appointment with [facility] on 11 May. [facility] has instructed him to return call on Wednesday to try to access services. He has not tried to access community health services yet as he did not know that they had addiction treatment or mental health services. Reports that his biggest challenges is that it is hard to ask for help. He is at that point now that he really wants to get better and is asking for help. Denies other illness or concerns currently. Timing/Duration: other (3 years) Severity: moderate Associated Symptoms: other (depression) Allergies and Home Medications Allergies Coded Allergies: No Known Drug Allergies (Unverified , 03/14/11) Patient Home Medication List Home Medication List Reviewed: Yes Aspirin (Aspirin Ec 81 Mg) 81 Mg Tabec, 81 MG PO DAILY, (Reported) Entered as Reported by: LETICIA KILGORE on 03/14/116 Cefdinir (Cefdinir) 300 Mg Capsule, 300 MG PO BID Prescribed by: BRODIE MIR on 12/21/22510 Doxycycline Hyclate (Doxycycline Hyclate) 100 Mg Tablet, 100 MG PO BID Prescribed by: BRODIE MIR on 12/21/22510 Lisinopril (Lisinopril) 10 Mg Tablet, 10 MG PO DAILY, (Reported) Entered as Reported by: BRENDA PULIDO on 12/30/20 1525 Review of Systems Constitutional: see HPI; No chills, No fever Respiratory: no symptoms reported Cardiovascular: no symptoms reported Psychiatric/Neurological: See HPI, Depressed, Emotional Problems Past Egihizv-Hhidmg-Ifysrg Hx Patient Social History Substance use?: Yes Substance type: Marijuana Substance frequency: Once in a while Alcohol Use?: Yes Alcohol type: Hard Liquor Alcohol Frequency: Couple times a week Immunizations Up To Date First/Initial COVID19 Vaccinat: NO VACC Seasonal Allergies Seasonal Allergies: No Past Medical History Surgeries: Yes Tonsillectomy Respiratory: No Currently Using CPAP: No Currently Using BIPAP: No Cardiac: Yes Hypertension Neurological: No Genitourinary: No Gastrointestinal: No Musculoskeletal: No Endocrine: No HEENT: No Cancer: No Psychosocial: No Integumentary: No Blood Disorders: No Physical Exam Vital Signs - First Documented 04/11/23 06:20 Temp 37.1 Pulse 77 Resp 16 B/P (MAP) 104/63 (77) Pulse Ox 97 O2 Delivery Room Air Capillary Refill : Height, Weight, BMI Height: '" Weight: lbs. oz. kg; 30.24 BMI Method: General Appearance: WD/WN, other (depressed appearing) HEENT: PERRL/EOMI, pharynx normal Neck: full range of motion, supple Respiratory: lungs clear, normal breath sounds Cardiovascular: regular rate, rhythm, no murmur Neurologic/Psychiatric: alert, oriented x 3 Appearance/Memory: appropriate appearance, appropriate insight Behavior/Eye Contact: cooperative, good eye contact, normal speech Thoughts/Hallucinations: normal thought pattern Skin: normal color, warm/dry Progress/Results/Core Measures Results/Orders Vital Signs/I&O 04/11/23 04/11/23 06:20 07:25 Temp 37.1 37.1 Pulse 77 77 Resp 16 16 B/P (MAP) 104/63 (77) 104/63 Pulse Ox 97 97 O2 Delivery Room Air Room Air Progress Progress Note : Progress Note Seen and evaluated. We did discuss community options for mental health as well as medical treatment. We did discuss [facility] services including addiction treatment services in depth. We did discuss local [place]-based organizations for alcohol treatment as well. We rediscussed [facility] and options for [facility] services. He is comfortable pursuing those in the outpatient setting. I did talk with him about that we are always here and do care for him and want him better and if things are worsening that he should return to the emergency department either in [place] or here as we can continue to try to find him help. He is not looking for inpatient services currently but was looking for outpatient psychiatry help for dealing with his loss and depression. He was reassured after the visit and feels comfortable goi ng home and will continue to try to access this services as discussed in discharge instructions. Discharged home with return precautions. Patient verbalized understand instructions and agreement with plan. Departure Impression Primary Impression: Depression Qualified Codes: F32.A - Depression, unspecified Additional Impression: EtOH dependence Qualified Codes: F10.29 - Alcohol dependence with unspecified alcohol- induced disorder Disposition: 01 HOME, SELF-CARE Condition: Stable Departure-Patient Inst. Decision time for Depature: 07:10 Referrals: BALBINA HENDERSON,LOCAL PHYSICIAN (PCP) Primary Care Physician Patient Instructions: Alcohol Use Disorder ED, Depression, Adult (DC) Add. Discharge Instructions: All discharge instructions reviewed with patient and/or family. Voiced understanding. Continue to seek follow-up for your mental health and alcohol dependence concerns. [facility] have both addiction treatment services and mental health services available. Call [facility] on Wednesday morning and ask to speak with the addiction treatment services nurse and set up appointment for their services. They do run the services out of [place] and may run those out of [place] as well but you can ask that question when you call them. Continue to refrain from alcohol as best you can. Keep appointment with [facility] mental health services on May 11 as scheduled. You may also continue to pursue mental health services through the [place] hotline and I do recommend that you call them back on Wednesday. Return to the emergency department at [place] or [place] if things are worsening or if you are having thoughts of harming yourself or others or for worsening depression, weakness, breathing problems, vomiting or other concerns as needed. Copy Copies To 1: BALBINA HENDERSON TIMOTHY D MD Apr 11, 2023 07:13
[2023-04-11 07:25] VITALS: BP 104/63
== END 2023-04-11 07:25 | disposition home or self-care (01) ==
LOC: EDUNIT# 05:51 → ER 05:56
DX: F32.A Depression, unspecified (principal); F10.20 Alcohol dependence, uncomplicated; Z28.310 Unvaccinated for COVID-19
CPT/HCPCS: 99281